=== PATIENT | male | born 1940 | race Caucasian/White ===

== ENCOUNTER 2017-05-21 12:48 | Emergency (ER) | payer OTHER ==
[~2017-05-21] VITALS: Ht 175.3 cm; Wt 99.2 kg
[~2017-05-21 12:48] MED LIST: AFRIN,GENASAL D15 ML BOTH NARES; ALEVE220 MG PO; APRESOLINE25 MG PO; ASPIR 8181 M1 PO; ASPIRIN EC325 MG PO; CELEBREX200 MG PO; CLONAZEPAM0.5 MG PO; ENDOCET 5-3251 EACH PO; LITE COAT ASPI325 M1 PO; METFORMIN HCL500 M1 PO; MONTELUKAST SOD10 MG PO; NAPROXEN SODIU220 MG PO; NORVASC10 MG PO; OXAYDO5 MG PO; PAROXETINE HCL10 MG PO; PAROXETINE HCL20 MG PO; TOPROL XL100 MG PO; VALTURNA 300-31 EACH PO; ZESTORETIC,P1 TABLE1 PO
[2017-05-21 14:10] VITALS: BP 138/72
== END 2017-05-21 14:11 | disposition home or self-care (01) ==
LOC: EME 12:48
DX: S80.12XA Contusion of left lower leg, initial encounter (principal); L03.116 Cellulitis of left lower limb; W22.8XXA Striking against or struck by other objects, initial encounter; I10 Essential (primary) hypertension; E11.9 Type 2 diabetes mellitus without complications; Z79.84 Long term (current) use of oral hypoglycemic drugs; Z79.82 Long term (current) use of aspirin; Z87.891 Personal history of nicotine dependence
CPT/HCPCS: 99281; 99283